=== PATIENT | male | born 1970 | race Caucasian/White ===

== ENCOUNTER 2020-08-24 07:42 | Emergency (ER) | payer BC, OTHER ==
[2020-08-24] MEDS ORDERED: ACETAMINOPHEN 1000 MG/100 ML VIAL (NON FORMULARY) IVPB ONE (07:45)
[2020-08-24] MEDS ORDERED: SODIUM CHLORIDE 1,000 ML IV STA (07:45)
[2020-08-24] MEDS ORDERED: CASIRIVIMAB (REGN10933) 1,200 MG, IMDEVIMAB (REGN10987) 1,200 MG in SODIUM CHLORIDE 250 ML IVPB ONE (07:48)
[2020-08-24 08:19] VITALS: BMI 28.8
[2020-08-24] MEDS ORDERED: ACETAMINOPHEN INJECTION 100 ML IVPB ONE (08:32)
[2020-08-24 08:35] LABS: BASO % 0.4 % (0-2.0); HEMATOCRIT 44.1 % (35.4-49); HEMOGLOBIN 15.1 GM/dL (11.7-16.9); LYMPH % 28.1 % (8-40); MCH 28.3 pg (25.7-33.7); MCHC 34.2 g/dl (32.0-35.9); MEAN CELL VOLUME 82.6 fl (80-96); MEAN PLT VOLUME 10.5 fl (7.5-11.1); MONO % 12.8 % (3.8-10.2); NEUT % 58.7 % (42.8-82.8); PLATELET COUNT 149 K/MM3 (134-434); RBC 5.34 M/mm3 (4.00-5.60); WHITE BLOOD COUNT 3.5 K/mm3 (4.0-10.0)
[2020-08-24 08:59] LABS: POTASSIUM 4.8 mmol/L (3.5-5.1)
[2020-08-24 09:01] LABS: ALBUMIN 3.7 g/dl (3.4-5.0); BLOOD UREA NITROGEN 16.1 mg/dL (7-18); CALCIUM 8.8 mg/dL (8.5-10.1)
[2020-08-24 09:06] LABS: BILIRUBIN,TOTAL 0.4 mg/dL (0.2-1)
[2020-08-24 10:01] VITALS: TEMP 97.9
[2020-08-24 10:38] VITALS: BP 93/58; PULSE 69
[2020-08-24 11:10] LABS: PLATELET ESTIMATE NORMAL
== END 2020-08-24 10:38 | disposition home or self-care (01) ==
LOC: JCOVINFU 07:42 → JER 07:42 → JCOVINFU 10:38
PROC: 3E0333Z Introduction of Anti-inflammatory into Peripheral Vein, Percutaneous Approach (ICD-10-PCS; principal; 2020-08-24)
PROC: 3E03329 Introduction of Other Anti-infective into Peripheral Vein, Percutaneous Approach (ICD-10-PCS; 2020-08-24)
PROC: 3E0337Z Introduction of Electrolytic and Water Balance Substance into Peripheral Vein, Percutaneous Approach (ICD-10-PCS; 2020-08-24)
DX: U07.1 COVID-19 (principal)
CPT/HCPCS: 36415; 80053; 83735; 85025; 99284-25; J0131; M0243; Q0243